=== PATIENT | male | born 2000 | race Caucasian/White ===

== ENCOUNTER 2021-04-24 09:57 | Emergency (ER) | payer OTHER ==
[~2021-04-24] VITALS: Ht 182.9 cm; Wt 92.5 kg
== END 2021-04-24 14:02 | disposition home or self-care (01) ==
LOC: EMR PED 09:57
DX: R10.9 Unspecified abdominal pain (principal); R11.10 Vomiting, unspecified; R50.9 Fever, unspecified; Z03.818 Encounter for observation for suspected exposure to other biological agents ruled out; R53.81 Other malaise